=== PATIENT | female | born 1985 | race Caucasian/White ===

== ENCOUNTER → 2019-01-20 11:33 | Outpatient (CLI) | payer BC ==
[2016-04-08 10:29] VITALS: BMI 22.8
[~2019-01-20 11:33] MED LIST: BENADRYL25 MG PO; CYCLOBENZAPRINE10 MG PO; FOLIC ACID1 MG PO; IBUPROFEN600 MG PO; LO LOESTRIN TAB; MOTRIN600 MG PO; PERCOCET 5-3251 TAB PO; PRENATAL COMPLE1 TAB PO
== END | disposition home or self-care (01) ==
LOC: D.LDO 11:33
PROVIDERS: ATTEND Obstetrics & Gynecology
DX: O26.899 Other specified pregnancy related conditions, unspecified trimester (principal)

== ENCOUNTER → 2019-01-28 18:39 | Outpatient (CLI) | payer BC ==
[2016-04-08 10:29] VITALS: BMI 22.8
== END | disposition home or self-care (01) ==
LOC: D.LDO 18:39
PROVIDERS: ATTEND Obstetrics & Gynecology
DX: O36.5920 Maternal care for other known or suspected poor fetal growth, second trimester, not applicable or unspecified (principal); Z3A.00 Weeks of gestation of pregnancy not specified

== ENCOUNTER 2019-02-15 06:06 | Inpatient (IN) | payer BC ==
[~2019-02-15] VITALS: Ht 172.7 cm; Wt 76.2 kg
[2019-02-15] MEDS ORDERED: AMBIEN5 MG PO (06:13)
[2019-02-15 06:14] VITALS: BP 110/69; Ht 172.7 cm; Wt 76.2 kg
[2019-02-15 06:42] LABS: HEMATOCRIT 29.8 % (36.0-48.0); HEMOGLOBIN 9.6 g/dL (12-16); MCH 29.6 pg (26.0-34.0); MCHC 32.2 g/dL (31.0-37.0); MEAN PLATELET VOLUME 9.5 fL (7.4-10.4); RBC 3.24 10x6/uL (4.00-5.40); RDW 12.7 % (11.5-14.5); WBC 9.1 10x3/uL (4.8-10.8)
[2019-02-15 09:03] LABS: APPEARANCE CLEAR (CLEAR); COLOR STRAW (YELLOW)
[2019-02-15 09:04] LABS: BILIRUBIN NEGATIVE (NEGATIVE); GLUCOSE NEGATIVE (NEGATIVE); KETONE NEGATIVE (NEGATIVE); NITRITE NEGATIVE (NEGATIVE); PROTEIN NEGATIVE (NEGATIVE); SPECIFIC GRAVITY 1.015 (1.005-1.020); UROBILINOGEN NORMAL (NORMAL)
--- NOTE | 2019-02-15 15:27 | NUR ---
NOTIFIED DAKOTA CASTRO OF LOW PO2 ON CORD BLOOD GAS
--- NOTE | 2019-02-15 18:20 | NUR ---
PT TRANSFERRED TO ROOM 1257 VIA W/C. PT ORIENTED TO NEW ROOM, BR, CALL LIGHTS AND TV CONTROLS. WHITE BOARD UPDATED. PT DENIES ANY NEEDS. LIGHTS IN ROOM DIMMED FOR REST. PT LYING IN BED SUPINE WITH HOB 45 DEGREES, SRUx2, CL IN REACH. WILL CONT TO MONITOR.
[2019-02-15 20:52] VITALS: BP 121/74
--- NOTE | 2019-02-15 20:52 | NUR ---
PT REC'D IN BED AT THIS TIME.COMPLAINS OF PAIN AT AT LEVEL OF 8. LUNGS CLEAR. BS+. FUNDUS FIRM AND MIDLINE AND AT U/2. SCANT LOCHIA NOTED. SALINE LOCK TO THE LEFT HAND. SITE CLEAR. PT MEDICATERD FOR PAIN WITH NORCO AT 2054. WILL CONTINUE TO MONITOR. NO ACUTE DISTRESS NOTED. SIDERAILS UP FOR SAFETY. CALL LIGHT IN PT REACH. Mario LOERA RN
--- NOTE | 2019-02-15 22:10 | NUR ---
PT REC'D IN BED ASLEEP AT THIS TIME. DID NOT AWAKEN. WILL CONTINUE TO MONITOR. Mario LOERARN
--- NOTE | 2019-02-15 23:36 | NUR ---
PT MEDICATED WITH MOTRIN FOR PAIN OF 5 AT THIS TIME. WILL MONITOR. Mario LOERA RN
--- NOTE | 2019-02-16 00:20 | NUR ---
PT DENIES PAIN AT THIS TIME. WILL CONTINUE TO MONITOR. Mario LOERA RN
--- NOTE | 2019-02-16 02:33 | NUR ---
PT MEDICATED FOR A PAIN LEVEL OF 8. WILL CONTINUE TO MONITOR. Mario LOERA RN
--- NOTE | 2019-02-16 03:20 | NUR ---
PT STATES THAT PAIN LEVEL IS A 4 AT THIS TIME. PT SITTING IN BED EATING CRACKERS. Maroi LOERA RN
--- NOTE | 2019-02-16 05:38 | NUR ---
PT REC'D IN BED ASLEEP AT THIS TIME. NO DISTRESS NOTED AT THIS TIME. Mario LOERARN
--- NOTE | 2019-02-16 06:45 | NUR ---
PT RESTING COMFORTABLY AT THIS TIME. NO COMPLAINTS. Mario LOERA RN
[2019-02-16 07:26] LABS: RAPID PLASMA REAGIN Non Reactive (Non Reactive)
[2019-02-16 07:27] LABS: BASOPHILS 0.2 % (0-2); HEMOGLOBIN 8.7 g/dL (12-16); IMMATURE GRANULOCYTES 0.5 % (0-5); MCHC 32.2 g/dL (31.0-37.0); MCV 93.1 fL (80.0-100.0); MEAN PLATELET VOLUME 9.4 fL (7.4-10.4); MONOCYTES 7.7 % (2-11); NEUTROPHILS 70.6 % (40-80); PLATELET COUNT 250 10x3/uL (130-400); RDW 12.7 % (11.5-14.5)
[2019-02-16 07:45] VITALS: BP 122/79
--- NOTE | 2019-02-16 07:54 | NUR ---
AM ASSESSMENT CHARTED ON FLOWSHEET. PT UP WALKING ABOUT ROOM WITH COMPLAINT OF INCREASE CRAMPING, REASSURED THIS WAS EXPECTED AND PAIN MED/MOTRIN OFFERED, MEDS GIVEN SCANNED TO EMAR. DENIES CLOTS WITH VOIDS AND STATES BLEEDING IS LESS THAN NORMAL MENSTRUAL, FUNDUS FIRM AT U/1 WITH LIGHT BLEEDING TO DYLAN PAD. SALINE LOCK TO LEFT WRIST PATENT WITH NO REDDNESS OR TENDERNESS TO TOUCH, FLUSHES EASILY WITH 5ML NS. REGULAR DIET TRAY PER DIETARY AND PT DENIES ANY OTHER NEEDS AT THIS TIME. SIDE RAILS UP X 2 WITH PHONE AND CALL LIGHT IN REACH.
--- NOTE | 2019-02-16 08:08 | NUR ---
PT STATES THAT CRAMPING IS MUCH BETTER AND RATES DISCOMFORT AT 2/10. DENIES NEEDS AT THIS TIME.
--- NOTE | 2019-02-16 10:18 | NUR ---
LARGE CUP OF ICE WITH APPLE JUICE PER PT REQUEST. LIGHTS TURNED DOWN, IN NURSERY AT THIS TIME. SIDE RAILS UP X 2, CALL LIGHT IN REACH, RATES PAIN/CRAMPS AT 2/10.
--- NOTE | 2019-02-16 12:19 | NUR ---
PAIN MED GIVEN PER PT REQUEST. STATES CRAMPING IS BETTER BUT JUST GOT UP TO VOID AND WANTING TO SHOWER WHEN SIG OTHER ARRIVES. NO OTHER NEEDS AT THIS TIME. CALL LIGHT IN REACH.
--- NOTE | 2019-02-16 15:23 | NUR ---
MOTRIN 600 MG GIVEN PT REQUESTED. SHE DENIES ANY OTHER NEEDS AND IS VISITING WITH FAMILY. CALL LIGHT IN REACH.
--- NOTE | 2019-02-16 18:34 | NUR ---
PAIN MED GIVEN PER REQUEST SCANNED TO EMAR. SALINE LOCK REMOVED INTACT PER PT REQUEST AND COMPLAINT OF TENDERNESS AT SITE. TOWELS TO BATHROOM FOR SHOWER, SHE IS AT THIS TIME, CALL LIGHT IN REACH.
--- NOTE | 2019-02-16 19:23 | NUR ---
PT REC'D IN BED AT THIS TIME. DENIES PAIN. WILL CONTINUE TO MONITOR. THIS SHIFT. Mario LOERA RN
[2019-02-16 20:26] VITALS: BP 129/86
--- NOTE | 2019-02-16 20:26 | NUR ---
PT REC'D IN BED AT THIS TIME. LUNGS CLEAR BS+. FUNDUS FIRM AND MIDLINE. DENIES PAIN AT THIS TIME. VSS. SCNAT LOCHIA NOTED. NOP ACUTE DISTRESS NOTED AT THIS TIME. Mario LOERA RN
--- NOTE | 2019-02-16 22:50 | NUR ---
PT MEDICATED FOR PAIN WITH IBUPROFEN AND NORCO AT THIS TIME. WILL CONTINUE TO MONITOR. Mario LOERA RN
--- NOTE | 2019-02-16 23:57 | NUR ---
PT STATES THAT SHE HAS NO PAIN AT THIS TIME. Mario LOERA RN
--- NOTE | 2019-02-17 01:55 | NUR ---
PT DENIES PAIN AT THIS TIME. PROVIDED WITH HYDRATION AT THIS TIME. Mario LOERA RN
--- NOTE | 2019-02-17 03:55 | NUR ---
pt rec'd in bed at this time. no complaints of pain at this time. fina mcgill rn
--- NOTE | 2019-02-17 05:17 | NUR ---
pt resting at this time. no needs voiced at this time. fina mcgill rn
[2019-02-17 08:25] VITALS: BP 119/78
--- NOTE | 2019-02-17 08:25 | NUR ---
SHIFT ASSESSMENT COMPLETED AT THIS TIME. PT SITTING UP SEMI ANN, JAY [id number]. RESTING IN OPEN CRIB AT BEDSIDE. PT RATES PAIN 5/10 AT THIS TIME. ADV WILL CHECK MEDICATION AVAILABILITY HONORIO. PT VERBALIZED UNDERSTANDING. HR-RRR, PPP, BREATH SOUNDS CLEAR AND UNLABORED X2. BOWEL SOUNDS ACTIVE X4. FUNDUS FIRM, ML, U/2. SMALL LOCHIA RUBRA REPORTED WHEN VOIDING. PT DENIES CLOTS WHEN VOIDING. NO EDEMA NOTED TO BLE. PT DENIES NEEDS AT THIS TIME. REGULAR MEAL TRAY SERVED. BED LOW, WHEELS LOCKED, CALL LIGHT AND PHONE WITHIN REACH, SIDE RAILS UP X2.
--- NOTE | 2019-02-17 09:14 | NUR ---
PT C/O ABDOMINAL CRAMPING OF "5" ON 0-10 PAIN SCALE. NORCO 5/325 GIVEN PO ORDERED. PT INSTRUCTED ON MED. VERBALIZES UNDERSTANDING.
--- NOTE | 2019-02-17 14:05 | NUR ---
PT C/O HEADACHE AND ABDOMINAL CRAMPING OF "7" ON 0-10 PAIN SCALE. NORCO 5/325 AND MOTRIN 600 MG GIVEN PO ORDERED. PT INSTRUCTED ON MEDS. VERBALIZES UNDERSTANDING.
--- NOTE | 2019-02-17 16:15 | NUR ---
REPORT CALLED TO DR AGUIRRE ON PT DESIRE TO D/C TO HOME. T/O RCVD TO EITHER D/C PT TO HOME OR ROOM PT IN IF INFANT DOES NOT D/C.
--- NOTE | 2019-02-17 17:00 | NUR ---
D/C ORDER RCVD ON INFANT. WILL PROCESS D/C ON PT.
--- NOTE | 2019-02-17 18:02 | NUR ---
D/C INSTRUCTIONS EXPLAINED, SIGNED, AND WITNESSED. COPY OF PRESCRIPTION AND INSTRUCTIONS PROVIDED TO PT. PT REFUSES FLU AND TDAP VACCINES. PT OFFERS NO FURTHER QUESTIONS OR CONCERNS AT THIS TIME.
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
== END 2019-02-17 20:00 | disposition home or self-care (01) | DRG 807 ==
LOC: D.LD 06:06
PROVIDERS: ADMIT Obstetrics & Gynecology; ATTEND Obstetrics & Gynecology
PROC: 10E0XZZ Delivery of Products of Conception, External Approach (ICD-10-PCS; principal; 2019-02-15)
PROC: 0KQM0ZZ Repair Perineum Muscle, Open Approach (ICD-10-PCS; 2019-02-15)
DX: O99.344 Other mental disorders complicating childbirth (principal); Z37.0 Single live birth; F32.9 Major depressive disorder, single episode, unspecified; Z3A.39 39 weeks gestation of pregnancy; O70.1 Second degree perineal laceration during delivery